=== PATIENT | female | born 1955 | race Caucasian/White ===

== ENCOUNTER 2017-06-30 16:40 | Observation (INO) | payer OTHER ==
[2017-06-30] MEDS ORDERED: MORPHINE SULFATE 4 MG/ML SYRINGE IVP STA (16:56)
[2017-06-30] MEDS ORDERED: ONDANSETRON 4 MG/2 ML VIAL IVP STA (16:56)
--- NOTE | 2017-06-30 17:19 | ED ---
General Adult HPI - General Chief complaint: Extremity Injury, Lower Stated complaint: left ankle fracture Time Seen by Provider: 06/30/17 16:45 Source: patient, EMS, RN notes reviewed Mode of arrival: EMS Limitations: no limitations - History of Present Illness Initial comments: This is a 61-year-old female presents emergency department after having been seen at [facility]. Patient states she slipped on a mat today and hurt her ankle. According to the transfer paperwork the patient has a trimalleolar fracture of her left ankle. Patient continues to be in pain and continues to be nauseous. Patient did have some lab work done but it was hemolyzed so we will be repeating her lab work. Patient denies any knee pain patient denies any hip or pelvis pain. Patient denies any other injury at this time. Patient denies hitting her head or having any neck pain. - Related Data Home Medications Medication Instructions Recorded Confirmed ALPRAZolam [Xanax] 0.25 mg PO DAILY PRN 09/03/16 06/30/17 Furosemide [Lasix] 20 mg PO DAILY 09/03/16 06/30/17 Insulin Glargine,Hum.rec.anlog 70 unit SQ HS 09/03/16 06/30/17 [Lantus Solostar] Ergocalciferol (Vitamin D2) 50,000 unit PO MO 09/17/16 06/30/17 [Vitamin D2] Insulin Aspart [Novolog Flexpen] 30 unit SQ BID 06/30/17 06/30/17 Spironolactone [Aldactone] 25 mg PO DAILY 06/30/17 06/30/17 Allergies Allergy/AdvReac Type Severity Reaction Status Date / Time morphine AdvReac Vomiting Verified 06/30/17 17:23 Review of Systems ROS Statement: Those systems with pertinent positive or pertinent negative responses have been documented in the HPI. ROS Other: All systems not noted in ROS Statement are negative. Past Medical History Past Medical History: Blood Disorder, Diabetes Mellitus, Skin Disorder History of Any Multi-Drug Resistant Organisms: None Reported Past Surgical History: Section, Cholecystectomy, Hysterectomy Additional Past Surgical History / Comment(s): SKIN GRAFTS, VEIN STRIPPING, LAPAROSCOPY Past Anesthesia/Blood Transfusion Reactions: Postoperative Nausea & Vomiting ( PONV) Past Psychological History: No Psychological Hx Reported Smoking Status: Never smoker Past Alcohol Use History: Occasional Past Drug Use History: None Reported General Exam - General Exam Comments Initial Comments: GENERAL: Patient is well-developed and well-nourished. Patient is nontoxic and well- hydrated and is in moderate distress. ENT: Neck is soft and supple. No significant lymphadenopathy is noted. Oropharynx is clear. Moist mucous membranes. Neck has full range of motion without eliciting any pain. EYES: The sclera were anicteric and conjunctiva were pink and moist. Extraocular movements were intact and pupils were equal round and reactive to light. Eyelids were unremarkable. PULMONARY: Unlabored respirations. Good breath sounds bilaterally. No audible rales rhonchi or wheezing was noted. CARDIOVASCULAR: There is a regular rate and rhythm without any murmurs gallops or rubs. ABDOMEN: Soft and nontender with normal bowel sounds. No palpable organomegaly was noted. There is no palpable pulsatile mass. SKIN: Skin is clear with no lesions or rashes and otherwise unremarkable. NEUROLOGIC: Patient is alert and oriented x3. Cranial nerves II through XII are grossly intact. Motor and sensory are also intact. Normal speech, volume and content. Symmetrical smile. MUSCULOSKELETAL: Ankle is in a splint but there is no knee or proximal leg pain. There is no hip pain. LYMPHATICS: No significant lymphadenopathy is noted PSYCHIATRIC: Normal psychiatric evaluation. Normal interpersonal interactions appears functionally intact in deals appropriately with others. No signs of depression. No signs of anxiety. Limitations: no limitations Course Vital Signs 06/30/17 06/30/17 06/30/17 16:45 18:35 20:37 Temperature 97.5 F L 97.0 F L Pulse Rate 91 95 97 Respiratory 18 18 16 Rate Blood Pressure 147/73 146/75 143/64 O2 Sat by Pulse 95 95 100 Oximetry 06/30/17 06/30/17 06/30/17 20:42 20:47 20:52 Temperature Pulse Rate 96 95 96 Respiratory 16 16 16 Rate Blood Pressure 140/62 147/67 142/62 O2 Sat by Pulse 100 100 100 Oximetry Procedures - Orthopedic Joint Reduction Joint #1 Consent Obtained: verbal consent Time Out Performed: Yes Side: left Joint Reduction Location: ankle Technique Used: traction/counter-traction Post-Reduction Neuro Exam: intact Post-Reduction Vascular Exam: intact Post Reduction X-Ray Obtained: Yes Post Reduction X-Ray Results: reduced Splint Applied: Yes Patient Tolerated Procedure: well - Procedural Sedation Procedural Sedation Start Time: 20:35 Procedural Sedation Stop Time: 21:10 Indications: fracture/dislocation reduction Preparation: pump installation and servicer applied, pulse oximeter, supplemental O2 applied IV Etomidate Dose (mgs): 20 Complications: none Patient Tolerated Procedure: well Medical Decision Making - Medical Decision Making I spoke with Dr. Licea about admitting the patient he agreed to admit the patient I first reduce the dislocation and then I ordered a computed tomography scan of the ankle. I admitted the patient wrote admitting orders - Lab Data Result diagrams: 06/30/17 17:20 06/30/17 17:20 Lab Results 06/30/17 06/30/17 Range/Units 17:20 17:20 WBC 2.6 L (3.8-10.6) k/uL RBC 4.41 (3.80-5.40) m/uL Hgb 11.7 (11.4-16.0) gm/dL Hct 37.5 (34.0-46.0) % MCV 85.2 (80.0-100.0) fL MCH 26.6 (25.0-35.0) pg MCHC 31.2 (31.0-37.0) g/dL RDW 18.9 H (11.5-15.5) % Plt Count 49 L* (150-450) k/uL Neutrophils % 64 % Lymphocytes % 25 % Monocytes % 6 % Eosinophils % 2 % Basophils % 1 % Neutrophils # 1.7 (1.3-7.7) k/uL Lymphocytes # 0.7 L (1.0-4.8) k/uL Monocytes # 0.2 (0-1.0) k/uL Eosinophils # 0.1 (0-0.7) k/uL Basophils # 0.0 (0-0.2) k/uL Manual Slide Review Performed Hypochromasia Moderate Anisocytosis Slight Sodium 138 (137-145) mmol/L Potassium 3.9 (3.5-5.1) mmol/L Chloride 104 (98-107) mmol/L Carbon Dioxide 19 L (22-30) mmol/L Anion Gap 15 mmol/L BUN 10 (7-17) mg/dL Creatinine 0.52 (0.52-1.04) mg/dL Est GFR (CKD-EPI)AfAm >90 (>60 ml/min/1.73 sqM) Est GFR (CKD-EPI)NonAf >90 (>60 ml/min/1.73 sqM) Glucose 288 H (74-99) mg/dL Calcium 8.9 (8.4-10.2) mg/dL Total Bilirubin 1.9 H (0.2-1.3) mg/dL AST 50 H (14-36) U/L ALT 40 (9-52) U/L Alkaline Phosphatase 99 (38-126) U/L Total Protein 6.3 (6.3-8.2) g/dL Albumin 3.4 L (3.5-5.0) g/dL Disposition Clinical Impression: Closed trimalleolar fracture, Ankle dislocation Disposition: ADMITTED IP TO THIS HOSP Referrals: Landen Cm MD [Primary Care Provider] - 1-2 days Time of Disposition: 20:57
[2017-06-30] MEDS ORDERED: METOCLOPRAMIDE 5 MG/ML 2 ML VIAL IVP STA ×2 (17:23→18:22)
[2017-06-30 17:31] LABS: Anisocytosis Slight; Basophils % (A) 1 %; Eosinophils # (A) 0.1 k/uL (0-0.7); Eosinophils % (A) 2 %; HCT 37.5 % (34.0-46.0); HGB 11.7 gm/dL (11.4-16.0); Hypochromasia Moderate; Lymphocytes # (A) 0.7 k/uL (1.0-4.8); Lymphocytes % (A) 25 %; MCH 26.6 pg (25.0-35.0); MCHC 31.2 g/dL (31.0-37.0); MCV 85.2 fL (80.0-100.0); Mean Platelet Volume 9.4; Monocytes # (A) 0.2 k/uL (0-1.0); Monocytes % (A) 6 %; Neutrophils # (A) 1.7 k/uL (1.3-7.7); Neutrophils % (A) 64 %; RBC 4.41 m/uL (3.80-5.40); RDW 18.9 % (11.5-15.5); WBC 2.6 k/uL (3.8-10.6)
[2017-06-30 17:46] LABS: ALT 40 U/L (9-52); AST 50 U/L (14-36); Albumin 3.4 g/dL (3.5-5.0); Alkaline Phosphatase 99 U/L (38-126); Anion Gap 15 mmol/L; Blood Urea Nitrogen 10 mg/dL (7-17); Calcium 8.9 mg/dL (8.4-10.2); Carbon Dioxide 19 mmol/L (22-30); Chloride 104 mmol/L (98-107); Glucose 288 mg/dL (74-99); Potassium 3.9 mmol/L (3.5-5.1); Sodium 138 mmol/L (137-145); Total Bilirubin 1.9 mg/dL (0.2-1.3); Total Protein 6.3 g/dL (6.3-8.2)
[2017-06-30 18:02] LABS: Platelet Count 49 k/uL (150-450)
--- NOTE | 2017-06-30 19:01 | XR ---
EXAMINATION TYPE: XR ankle limited LT DATE OF EXAM: 06/30/2017 COMPARISON: Today HISTORY: Fall. Pain. TECHNIQUE: 2 views FINDINGS: There is posterior dislocation of the talus. There is a large chip fracture of the posterio r malleolus. There is also transverse fracture of the medial malleolus. There is oblique fracture of the distal fibula. IMPRESSION: There is posterior trimalleolar fracture dislocation of the ankle without significant maxim nge in fragment position compared to exam earlier today at 2:00 PM.
[2017-06-30] MEDS ORDERED: PROMETHAZINE INJ 25 MG/ML 1 ML VIAL IM STA (19:52)
[2017-06-30] MEDS ORDERED: LORazepam 2 MG/ML INJ IV STA (20:28)
[2017-06-30] MEDS: ETOMIDATE 2 MG/ML 10 ML VIAL IVP STA ×3 (20:39→20:44)
[2017-06-30] MEDS ORDERED: SODIUM CHLORIDE 0.9% 1,000 ML IV ONE (20:58)
[2017-06-30] MEDS ORDERED: ONDANSETRON 4 MG/2 ML VIAL IVP PRN (20:59)
--- NOTE | 2017-06-30 21:18 | XR ---
EXAMINATION TYPE: XR ankle limited LT DATE OF EXAM: 06/30/2017 COMPARISON: Today HISTORY: Post reduction TECHNIQUE: 2 views FINDINGS: 2 views were obtained through the posterior cast that show anatomic reduction of the ankle joint. There is trimalleolar fracture of the ankle with fragments displaced up to 1 cm. Ankle mortise is anatomic. IMPRESSION: Satisfactory reduction. Trimalleolar fracture of the ankle joint. Plantar calcaneal spur noted.
--- NOTE | 2017-06-30 21:51 | CT ---
History ankle fracture. Pain. Comparison none. TECHNIQUE: Multiple axial sections were obtained from the mid tibia to the bottom of the foot without contrast. FINDINGS: There is a comminuted 2 x 1 cm chip fracture of the posterior malleolus. There is slight impaction of 5 mm. There is an oblique nondisplaced fracture of the distal fibula. There is nondisplaced transver se fracture of the medial malleolus. Ankle mortise is anatomic. There is a plantar calcaneal spur. Th e talus appears intact. Calcaneus is intact. There is comminution of the medial malleolus fragment. CONCLUSION: Comminuted trimalleolar fracture of the left ankle. No significant displacement.
[2017-06-30] MEDS ORDERED: MELATONIN 3 MG TABLET PO PRN (22:07)
[2017-06-30] MEDS ORDERED: ACETAMINOPHEN TAB 325 MG TAB PO PRN (22:09)
[2017-06-30] MEDS ORDERED: ACETAMINOPHEN IV (For NPO) 1,000 MG in EMPTY BAG 1 BAG IVPB PRN (22:09)
[2017-06-30] MEDS ORDERED: INSULIN DETEMIR 100 UNIT/ML 10 ML VIAL SQ ONE (22:30)
[2017-06-30] MEDS: MORPHINE SULFATE 4 MG/ML SYRINGE IVP PRN (22:43)
[2017-06-30] MEDS: KETOROLAC 30 MG/ML 1 ML VIAL IVP SCH (23:16)
[2017-07-01] MEDS: KETOROLAC 30 MG/ML 1 ML VIAL IVP SCH ×2 (04:15→11:48)
[2017-07-01 06:59] LABS: Anisocytosis Slight; Basophils % (A) 0 %; Eosinophils % (A) 1 %; HCT 32.6 % (34.0-46.0); Hypochromasia Marked; Lymphocytes # (A) 0.9 k/uL (1.0-4.8); Lymphocytes % (A) 33 %; MCH 26.3 pg (25.0-35.0); MCHC 30.6 g/dL (31.0-37.0); MCV 85.7 fL (80.0-100.0); Mean Platelet Volume 9.1; Monocytes # (A) 0.2 k/uL (0-1.0); Monocytes % (A) 8 %; Neutrophils # (A) 1.5 k/uL (1.3-7.7); Neutrophils % (A) 56 %; WBC 2.8 k/uL (3.8-10.6)
[2017-07-01 07:16] LABS: ALT 35 U/L (9-52); AST 37 U/L (14-36); Albumin 2.7 g/dL (3.5-5.0); Alkaline Phosphatase 67 U/L (38-126); Anion Gap 8 mmol/L; Blood Urea Nitrogen 14 mg/dL (7-17); Carbon Dioxide 22 mmol/L (22-30); Chloride 109 mmol/L (98-107); Glucose 238 mg/dL (74-99); Potassium 4.2 mmol/L (3.5-5.1); Sodium 139 mmol/L (137-145); Total Bilirubin 1.6 mg/dL (0.2-1.3); Total Protein 5.4 g/dL (6.3-8.2)
[2017-07-01 07:17] LABS: Glucose,Whole Blood 222 mg/dL (75-99)
[2017-07-01 07:20] LABS: Platelet Count 44 k/uL (150-450)
--- NOTE | 2017-07-01 07:25 | XR ---
EXAMINATION TYPE: XR chest 2V DATE OF EXAM: 07/01/2017 COMPARISON: NONE INDICATION: Preop ankle surgery TECHNIQUE: Frontal and lateral views of the chest are obtained. FINDINGS: The heart size is normal. The pulmonary vasculature is normal. The lungs are clear. IMPRESSION: 1. No acute pulmonary process.
[2017-07-01] MEDS: MORPHINE SULFATE 4 MG/ML SYRINGE IVP PRN (08:37)
[2017-07-01] MEDS: INSULIN ASPART 100 UNIT/ML 1 ML 10 ML VIAL SQ SCH ×2 (08:44→13:10)
--- NOTE | 2017-07-01 09:24 | P.HPOR ---
History of Present Illness H&P Date: 07/01/17 Chief Complaint: Left ankle fracture This is a 61-year-old female who fell in her home yesterday sustaining injury to her left ankle. She was initially taken to [facility] emergency department then was transferred to [facility] for orthopedic care. She was found to have a trimalleolar fracture dislocation. The ankle was reduced in the emergency department here and she was placed in a splint. CT was obtained of the ankle which revealed trimalleolar fracture in satisfactory reduction. There is also a lateral tibial fracture as well as well. Past Medical History Past Medical History: Blood Disorder, Diabetes Mellitus, Skin Disorder Additional Past Medical History / Comment(s): ITP, psoriasis History of Any Multi-Drug Resistant Organisms: None Reported Past Surgical History: Section, Cholecystectomy, Hysterectomy Additional Past Surgical History / Comment(s): SKIN GRAFTS, VEIN STRIPPING, LAPAROSCOPY Past Anesthesia/Blood Transfusion Reactions: Postoperative Nausea & Vomiting ( PONV) Past Psychological History: Anxiety Smoking Status: Never smoker Past Alcohol Use History: Daily Additional Past Alcohol Use History / Comment(s): states drinks one to a couple of drinks daily Past Drug Use History: None Reported Medications and Allergies Home Medications Medication Instructions Recorded Confirmed Type ALPRAZolam [Xanax] 0.25 mg PO DAILY PRN 09/03/16 06/30/17 History Furosemide [Lasix] 20 mg PO DAILY 09/03/16 06/30/17 History Insulin Glargine,Hum.rec.anlog 70 unit SQ HS 09/03/16 06/30/17 History [Lantus Solostar] Ergocalciferol (Vitamin D2) 50,000 unit PO MO 09/17/16 06/30/17 History [Vitamin D2] Insulin Aspart [Novolog Flexpen] 30 unit SQ BID 06/30/17 06/30/17 History Spironolactone [Aldactone] 25 mg PO DAILY 06/30/17 06/30/17 History Allergies Allergy/AdvReac Type Severity Reaction Status Date / Time morphine AdvReac Vomiting Verified 06/30/17 17:23 Physical Examination Her splint is removed. Exam of the left ankle reveals moderate swelling with some ecchymosis. There are no open wounds noted. There are patches of psoriasis throughout her lower extremities he has a +1/4 pedal pulse. She is able to wiggle her toes without difficulty or pain. Neurovascular status lower extremity is intact. Results X-rays and computed tomography scan of the left ankle reveal a trimalleolar fracture which has been reduced. There is also a lateral tibial fracture. - Labs Labs: Abnormal Lab Results - Last 24 Hours (Table) 06/30/17 06/30/17 07/01/17 Range/Units 17:20 17:20 06:21 WBC 2.6 L 2.8 L (3.8-10.6) k/uL Hgb 10.0 L D (11.4-16.0) gm/dL Hct 32.6 L (34.0-46.0) % MCHC 30.6 L (31.0-37.0) g/dL RDW 18.9 H 19.0 H (11.5-15.5) % Plt Count 49 L* 44 L* (150-450) k/uL Lymphocytes # 0.7 L 0.9 L (1.0-4.8) k/uL Chloride (98-107) mmol/L Carbon Dioxide 19 L (22-30) mmol/L Glucose 288 H (74-99) mg/dL POC Glucose (mg/dL) (75-99) mg/dL Calcium (8.4-10.2) mg/dL Total Bilirubin 1.9 H (0.2-1.3) mg/dL AST 50 H (14-36) U/L Total Protein (6.3-8.2) g/dL Albumin 3.4 L (3.5-5.0) g/dL 07/01/17 07/01/17 Range/Units 06:21 07:14 WBC (3.8-10.6) k/uL Hgb (11.4-16.0) gm/dL Hct (34.0-46.0) % MCHC (31.0-37.0) g/dL RDW (11.5-15.5) % Plt Count (150-450) k/uL Lymphocytes # (1.0-4.8) k/uL Chloride 109 H (98-107) mmol/L Carbon Dioxide (22-30) mmol/L Glucose 238 H (74-99) mg/dL POC Glucose (mg/dL) 222 H (75-99) mg/dL Calcium 8.0 L (8.4-10.2) mg/dL Total Bilirubin 1.6 H (0.2-1.3) mg/dL AST 37 H (14-36) U/L Total Protein 5.4 L (6.3-8.2) g/dL Albumin 2.7 L (3.5-5.0) g/dL H & H 06/30/17 07/01/17 Range/Units 17:20 06:21 Hgb 11.7 10.0 L D (11.4-16.0) gm/dL Hct 37.5 32.6 L (34.0-46.0) % Result Diagrams: 07/01/17 06:21 07/01/17 06:21 Assessment and Plan (1) Closed trimalleolar fracture Current Visit: Yes Status: Acute Code(s): S82.853A - DISPLACED TRIMALLEOLAR FRACTURE OF UNSP LOWER LEG, INIT SNOMED Code(s): 9910012 Plan: The clinical and radiographic findings are discussed the patient. She is placed in a well-padded splint today. Medical has been consulted for presurgical clearance. The patient has history of ITP and has a platelet count of 49,000. She was due for iron transfusion today and [place]. I will defer to internal medicine as to whether they docked proceed with that and fusion today. She may be discharged to home when cleared medically and follow-up with our office early next week to schedule open reduction internal fixation of the left ankle. She is to maintain nonweightbearing to the left lower extremity.
[2017-07-01] MEDS ORDERED: IRON SUCROSE 300 MG in SODIUM CHLORIDE 0.9% 250 ML IVPB ONE (10:15)
[2017-07-01 11:26] LABS: Glucose,Whole Blood 272 mg/dL (75-99)
[2017-07-01] MEDS ORDERED: MORPHINE ORAL SOLN 10 MG/5 ML CUP PO PRN (13:59)
[2017-07-01 15:00] VITALS: BP 163/81; PULSE 88; RESP 20; TEMP 98
--- NOTE | 2017-07-01 17:36 | P.CONS ---
History of Present Illness - Reason for Consult Consult date: 07/01/17 Apical management Requesting physician: Christopher Licea - Chief Complaint Left ankle fracture - History of Present Illness This is a 62-year-old pleasant lady patient of Dr. Cm. She has underlying history of portal hypertension and cirrhosis of liver, osteoporosis, ascites hepatitis C type 2 diabetes mellitus and pancytopenia, ITP admitted to the hospital secondary to acute ankle fracture, patient resented with a two-week history of pain in the forefoot, and was seen by Dr. Cm on 06/30/2017, patient had an x-ray that shows stress fractures, patient was home and had fallen in a foam mattress, inverted her left ankle and subsequently twisted this sustaining an ankle fracture. She has a trimalleolar lower fracture dislocation, this was reduced in the emergency department, and was placed in the splint. CT obtained of the ankle revealed trimalleolar fracture in a satisfactory reduction, there is also a lateral tibial fracture. Review of laboratories showed platelet count off 49,000, patient had no signs off with some bleeding or recent GI losses, this is a chronic nature for her, would discuss this with Dr. Barrientos oncology who knows her very well, has been following Dr. cruz for the past 6 years, she was scheduled to have an iron infusion which was given today, however in view off the low platelets, patient would require 5 units of platelet transfusion if platelet count is under 50,000 on the day of surgery when she comes back in 1 week. As per recommendations from oncology Dr. Finley, she could receive antiplatelets with aspirin 81 mg twice a day mg if platelet count is between 30-50, , DT prophylaxis in the meantime would be a SHAMEKA hose on the right as the patient cannot put the SHAMEKA hose on the left side. She was screened 2 times in the past for venous Doppler which was negative, her last Doppler imaging was over 5 months ago and complaints in the left leg Review of Systems Constitutional: Reports as per HPI, Denies anorexia, Denies chills, Denies chronic headaches, Denies chronic pain, Denies daytime sleepiness, Denies fatigue, Denies fever, Denies lethargy, Denies malaise, Denies night sweats, Denies poor appetite, Denies sweats, Denies weakness, Denies weight gain, Denies weight loss Ears, nose, mouth and throat: Reports as per HPI, Denies ant. neck pain, Denies bleeding gums, Denies dental pain, Denies dysphagia, Denies epistaxis, Denies headache, Denies hoarseness, Denies mouth pain, Denies nasal congestion, Denies nasal discharge, Denies neck fullness/pressure, Denies neck lump, Denies nose pain, Denies odynophagia, Denies post-nasal drip, Denies sinus pain, Denies sinus pressure, Denies swelling in mouth, Denies swelling in throat, Denies sore throat, Denies vertigo, Denies voice changes Cardiovascular: Reports as per HPI, Denies chest pain, Denies claudication, Denies decreased exercise tolerance, Denies dyspnea on exertion, Denies edema, Denies high blood pressure, Denies irregular heart beat, Denies leg edema, Denies lightheadedness, Denies orthopnea, Denies palpitations, Denies paroxysmal nocturnal dyspnea, Denies phlebitis, Denies rapid heart beat, Denies shortness of breath, Denies syncope Respiratory: Reports as per HPI, Denies congestion, Denies cough, Denies cough with sputum, Denies dyspnea, Denies excessive sputum, Denies hemoptysis, Denies home oxygen, Denies pain, Denies pain on inspiration, Denies pleurisy, Denies respiratory infections, Denies sleep apnea, Denies snoring, Denies wheezing Gastrointestinal: Reports as per HPI, Denies abdominal pain, Denies belching, Denies bloating, Denies BRBPR, Denies change in bowel habits, Denies coffee ground emesis, Denies constipation, Denies diarrhea, Denies dyspepsia, Denies early satiety, Denies excessive gas, Denies heartburn, Denies hematemesis, Denies hematochezia, Denies indigestion, Denies jaundice, Denies lactose intolerance, Denies loss of appetite, Denies melena, Denies nausea, Denies vomiting Genitourinary: Reports as per HPI Menstruation: Reports as per HPI Musculoskeletal: Reports as per HPI Integumentary: Reports as per HPI, Reports unusual bruising Neurological: Reports as per HPI, Denies aphasia, Denies ataxia, Denies balance difficulties, Denies burning pain, Denies change in mentation, Denies change in smell/taste, Denies change in speech, Denies confusion, Denies convulsions, Denies double vision, Denies gait dysfunction, Denies head injury, Denies headaches, Denies hearing difficulties, Denies lack of coordination, Denies loss of vision, Denies memory loss, Denies migraines, Denies motor disturbance, Denies numbness, Denies paralysis, Denies paresthesias, Denies seizures, Denies sensory deficit, Denies spasticity, Denies syncope, Denies tic, Denies tingling , Denies transient paralysis, Denies tremors, Denies vertigo, Denies weakness, Denies visual changes Psychiatric: Reports as per HPI Endocrine: Reports as per HPI, Denies cold intolerance, Denies deepening of the voice, Denies excessive sweating, Denies excessive thirst, Denies fatigue, Denies flushing, Denies heat intolerance, Denies high blood sugars, Denies increase in ring/shoe/hat size, Denies low blood sugars, Denies nocturia, Denies palpitations, Denies polydipsia, Denies polyphagia, Denies polyuria, Denies proptosis, Denies recent glucocorticoid use, Denies thyroid mass, Denies weight change Hematologic/Lymphatic: Reports as per HPI, Reports easy bleeding, Denies easy bruising, Denies lymphadenopathy, Denies lymphedema, Denies thrombophilia Allergic/Immunologic: Reports as per HPI, Denies allergic rhinitis, Denies anaphylaxis, Denies angioedema, Denies gluten intolerance, Denies persistent infections, Denies seasonal allergies, Denies urticaria, Denies wheezing Past Medical History Past Medical History: Blood Disorder, Diabetes Mellitus, Skin Disorder Additional Past Medical History / Comment(s): ITP, psoriasis History of Any Multi-Drug Resistant Organisms: None Reported Past Surgical History: Section, Cholecystectomy, Hysterectomy Additional Past Surgical History / Comment(s): SKIN GRAFTS, VEIN STRIPPING, LAPAROSCOPY Past Anesthesia/Blood Transfusion Reactions: Postoperative Nausea & Vomiting ( PONV) Past Psychological History: Anxiety Smoking Status: Never smoker Past Alcohol Use History: Daily Additional Past Alcohol Use History / Comment(s): states drinks one to a couple of drinks daily Past Drug Use History: None Reported Additional History: Mother is alive has hypertension COPD, age 85, father secondary to kidney cancer, one brother from a house fire, no sisters, one daughter healthy no signs Medications and Allergies Home Medications Medication Instructions Recorded Confirmed Type ALPRAZolam [Xanax] 0.25 mg PO DAILY PRN 09/03/16 06/30/17 History Furosemide [Lasix] 20 mg PO DAILY 09/03/16 06/30/17 History Insulin Glargine,Hum.rec.anlog 70 unit SQ HS 09/03/16 06/30/17 History [Lantus Solostar] Ergocalciferol (Vitamin D2) 50,000 unit PO MO 09/17/16 06/30/17 History [Vitamin D2] Insulin Aspart [Novolog Flexpen] 30 unit SQ BID 06/30/17 06/30/17 History Spironolactone [Aldactone] 25 mg PO DAILY 06/30/17 06/30/17 History traMADol HCL [Ultram] 50 mg PO Q6HR PRN #90 tab 07/01/17 Rx Allergies Allergy/AdvReac Type Severity Reaction Status Date / Time morphine AdvReac Vomiting Verified 06/30/17 17:23 Physical Exam Vitals: Vital Signs Temp Pulse Pulse Resp BP BP Pulse Ox 07/01/17 14:59 98.0 F 88 20 163/81 98 07/01/17 07:00 97.8 F 76 14 131/64 97 07/01/17 01:10 98.3 F 91 16 119/70 92 L 06/30/17 21:45 98.2 F 94 17 115/62 93 L 06/30/17 21:02 101 H 16 149/66 98 06/30/17 20:57 98 16 149/67 96 06/30/17 20:52 96 16 142/62 100 06/30/17 20:47 95 16 147/67 100 06/30/17 20:42 96 16 140/62 100 06/30/17 20:37 97 16 143/64 100 06/30/17 18:35 97.0 F L 95 18 146/75 95 Intake and Output 07/01/17 07/01/17 07/01/17 06:59 14:59 22:59 Intake Total 237 Balance 237 Intake: Oral 237 Other: Voiding Method Bedside Commode # Voids 1 2 - Constitutional General appearance: average body habitus, cooperative, no acute distress - EENT Eyes: anicteric sclerae, EOMI, PERRLA, dentition normal ENT: NA/AT, normal oropharynx - Neck Neck: no lymphadenopathy, normal ROM, no other, no rigidity, no stridor, no thyromegaly - Respiratory Respiratory: bilateral: CTA, negative: diminished, dullness, rales, wheezing, prolonged inspiration - Cardiovascular Rhythm: regular Heart sounds: normal: S1, S2 Abnormal Heart Sounds: no systolic murmur, no diastolic murmur, no rub, no S3 Gallop, no S4 Gallop, no click, no other - Gastrointestinal General gastrointestinal: normal bowel sounds, soft - Integumentary Integumentary: normal, normal turgor - Neurologic Neurologic: CNII-XII intact - Musculoskeletal Musculoskeletal: gait normal, strength equal bilaterally - Psychiatric Psychiatric: A&O x's 3, appropriate affect, intact judgment & insight Results CBC & Chem 7: 07/01/17 06:21 07/01/17 06:21 Labs: Abnormal Lab Results - Last 24 Hours (Table) 06/30/17 06/30/17 07/01/17 Range/Units 17:20 17:20 06:21 WBC 2.6 L (3.8-10.6) k/uL Hgb (11.4-16.0) gm/dL Hct (34.0-46.0) % MCHC (31.0-37.0) g/dL RDW 18.9 H (11.5-15.5) % Plt Count 49 L* (150-450) k/uL Lymphocytes # 0.7 L (1.0-4.8) k/uL Chloride (98-107) mmol/L Carbon Dioxide 19 L (22-30) mmol/L Glucose 288 H (74-99) mg/dL POC Glucose (mg/dL) (75-99) mg/dL Hemoglobin A1c 8.0 H (4.0-6.0) % Calcium (8.4-10.2) mg/dL Total Bilirubin 1.9 H (0.2-1.3) mg/dL AST 50 H (14-36) U/L Total Protein (6.3-8.2) g/dL Albumin 3.4 L (3.5-5.0) g/dL 07/01/17 07/01/17 07/01/17 Range/Units 06:21 06:21 07:14 WBC 2.8 L (3.8-10.6) k/uL Hgb 10.0 L D (11.4-16.0) gm/dL Hct 32.6 L (34.0-46.0) % MCHC 30.6 L (31.0-37.0) g/dL RDW 19.0 H (11.5-15.5) % Plt Count 44 L* (150-450) k/uL Lymphocytes # 0.9 L (1.0-4.8) k/uL Chloride 109 H (98-107) mmol/L Carbon Dioxide (22-30) mmol/L Glucose 238 H (74-99) mg/dL POC Glucose (mg/dL) 222 H (75-99) mg/dL Hemoglobin A1c (4.0-6.0) % Calcium 8.0 L (8.4-10.2) mg/dL Total Bilirubin 1.6 H (0.2-1.3) mg/dL AST 37 H (14-36) U/L Total Protein 5.4 L (6.3-8.2) g/dL Albumin 2.7 L (3.5-5.0) g/dL 07/01/17 Range/Units 11:23 WBC (3.8-10.6) k/uL Hgb (11.4-16.0) gm/dL Hct (34.0-46.0) % MCHC (31.0-37.0) g/dL RDW (11.5-15.5) % Plt Count (150-450) k/uL Lymphocytes # (1.0-4.8) k/uL Chloride (98-107) mmol/L Carbon Dioxide (22-30) mmol/L Glucose (74-99) mg/dL POC Glucose (mg/dL) 272 H (75-99) mg/dL Hemoglobin A1c (4.0-6.0) % Calcium (8.4-10.2) mg/dL Total Bilirubin (0.2-1.3) mg/dL AST (14-36) U/L Total Protein (6.3-8.2) g/dL Albumin (3.5-5.0) g/dL Laboratory Results WBC 2.8 k/uL (3.8-10.6) L 07/01/17 06:21 RBC 3.80 m/uL (3.80-5.40) 07/01/17 06:21 Hgb 10.0 gm/dL (11.4-16.0) L D 07/01/17 06:21 Hct 32.6 % (34.0-46.0) L 07/01/17 06:21 MCV 85.7 fL (80.0-100.0) 07/01/17 06:21 MCH 26.3 pg (25.0-35.0) 07/01/17 06:21 MCHC 30.6 g/dL (31.0-37.0) L 07/01/17 06:21 RDW 19.0 % (11.5-15.5) H 07/01/17 06:21 Plt Count 44 k/uL (150-450) L* 07/01/17 06:21 Neutrophils % 56 % 07/01/17 06:21 Lymphocytes % 33 % 07/01/17 06:21 Monocytes % 8 % 07/01/17 06:21 Eosinophils % 1 % 07/01/17 06:21 Basophils % 0 % 07/01/17 06:21 Neutrophils # 1.5 k/uL (1.3-7.7) 07/01/17 06:21 Lymphocytes # 0.9 k/uL (1.0-4.8) L 07/01/17 06:21 Monocytes # 0.2 k/uL (0-1.0) 07/01/17 06:21 Eosinophils # 0.0 k/uL (0-0.7) 07/01/17 06:21 Basophils # 0.0 k/uL (0-0.2) 07/01/17 06:21 Manual Slide Review Performed 06/30/17 17:20 Hypochromasia Marked 07/01/17 06:21 Anisocytosis Slight 07/01/17 06:21 Sodium 139 mmol/L (137-145) 07/01/17 06:21 Potassium 4.2 mmol/L (3.5-5.1) 07/01/17 06:21 Chloride 109 mmol/L (98-107) H 07/01/17 06:21 Carbon Dioxide 22 mmol/L (22-30) 07/01/17 06:21 Anion Gap 8 mmol/L 07/01/17 06:21 BUN 14 mg/dL (7-17) 07/01/17 06:21 Creatinine 0.65 mg/dL (0.52-1.04) 07/01/17 06:21 Est GFR (CKD-EPI)AfAm >90 (>60 ml/min/1.73 sqM) 07/01/17 06:21 Est GFR (CKD-EPI)NonAf >90 (>60 ml/min/1.73 sqM) 07/01/17 06:21 Glucose 238 mg/dL (74-99) H 07/01/17 06:21 POC Glucose (mg/dL) 272 mg/dL (75-99) H 07/01/17 11:23 POC Glu Sugar Refiner ID Mirtha Mckinney 07/01/17 11:[address] Glu mg/dL 183 07/01/17 06:21 Hemoglobin A1c 8.0 % (4.0-6.0) H 07/01/17 06:21 Calcium 8.0 mg/dL (8.4-10.2) L 07/01/17 06:21 Total Bilirubin 1.6 mg/dL (0.2-1.3) H 07/01/17 06:21 AST 37 U/L (14-36) H 07/01/17 06:21 ALT 35 U/L (9-52) 07/01/17 06:21 Alkaline Phosphatase 67 U/L (38-126) 07/01/17 06:21 Total Protein 5.4 g/dL (6.3-8.2) L 07/01/17 06:21 Albumin 2.7 g/dL (3.5-5.0) L 07/01/17 06:21 Assessment and Plan Plan: 1. Left ankle trimalleolar fracture and tibial fracture, requiring ORIF which is going to be performed in one week, secondary to swelling noted today, patient was having no bleeding issues however lately it count is 49,000 today, and we've discussed this with Dr. Finley, DVT prophylaxis would be SHAMEKA hose until the day of surgery, and after we would offer aspirin 81 mg twice a day if platelet count is between 30-50, if above 50,000, routine anticoagulation can be done with other medications. 2. Pancytopenia with chronic thrombocytopenia, no evidence of GI losses at this time, treatment as above,Prednisone use currently at 10 mg, unknown whether this long-term or not this would be clarified infusion to be given at the day of surgery 5 units single donor 3. Known history of hepatitis C, unknown activity however patient says she is cured by the GI specialist 4. History of psoriasis no active problems 6. History of liver cirrhosis and portal hypertension, stable 7 Diabetes mellitus type 2 not on any Apidra and Lantus at 70 units daily Apidra 30 units twice a day breakfast and dinner 8. Osteoporosis and vitamin D deficiency, on 50,000 units by 2 mean D2 every [address] Huggins in allowing us to participate in the care of your patient. We'll going to follow him with you during this current hospital stay, recommendations made as above along with oncology consultation over the phone
== END 2017-07-01 15:51 | disposition home or self-care (01) ==
LOC: EC 16:40 → INTOOBSV 20:58 → MERGE 20:58 → 3SUR 20:58 → UNDODISIN 07-01 15:51
PROVIDERS: ADMIT Orthopaedic Surgery; ATTEND Orthopaedic Surgery
DX: S82.852A Displaced trimalleolar fracture of left lower leg, initial encounter for closed fracture (principal); D69.3 Immune thrombocytopenic purpura; D61.818 Other pancytopenia; K76.6 Portal hypertension; M81.0 Age-related osteoporosis without current pathological fracture; K74.60 Unspecified cirrhosis of liver; B19.20 Unspecified viral hepatitis C without hepatic coma; L40.9 Psoriasis, unspecified; E11.9 Type 2 diabetes mellitus without complications; F41.9 Anxiety disorder, unspecified; E55.9 Vitamin D deficiency, unspecified; W01.0XXA Fall on same level from slipping, tripping and stumbling without subsequent striking against object, initial encounter; Z79.4 Long term (current) use of insulin; Z79.899 Other long term (current) drug therapy; Z90.710 Acquired absence of both cervix and uterus; Z90.49 Acquired absence of other specified parts of digestive tract; Z88.5 Allergy status to narcotic agent; Y92.009 Unspecified place in unspecified non-institutional (private) residence as the place of occurrence of the external cause
CPT/HCPCS: 96376 ×3; 96365; 96366; 96375 ×2; 96372; 99285; 36415; 27840; 99152; 99153; 93005; 97161; 80053 ×2; 85025 ×2; 83036; 73600; 71046; 73700; G0378 ×2; J2060; J2270 ×2; J2550; J2765; J2405 ×2; J1885 ×2; J1756; 96374

== ENCOUNTER → 2017-07-13 | Outpatient (CLI) | payer OTHER ==
[2017-07-13 13:17] LABS: Anisocytosis Moderate; Basophils % (A) 0 %; Eosinophils # (A) 0.1 k/uL (0-0.7); Eosinophils % (A) 3 %; HCT 41.2 % (34.0-46.0); HGB 11.8 gm/dL (11.4-16.0); Hypochromasia Marked; Lymphocytes # (A) 0.8 k/uL (1.0-4.8); Lymphocytes % (A) 30 %; MCH 25.7 pg (25.0-35.0); MCHC 28.6 g/dL (31.0-37.0); Mean Platelet Volume 9.7; Monocytes # (A) 0.3 k/uL (0-1.0); Monocytes % (A) 10 %; Neutrophils # (A) 1.5 k/uL (1.3-7.7); Neutrophils % (A) 53 %; RBC 4.58 m/uL (3.80-5.40); RDW 20.1 % (11.5-15.5); WBC 2.8 k/uL (3.8-10.6)
[2017-07-13 13:35] LABS: INR 1.6 (<1.2); Partial Thromboplastin Time 24.9 sec (22.0-30.0); Prothrombin Time 14.8 sec (9.0-12.0)
[2017-07-13 13:47] LABS: Platelet Count 46 k/uL (150-450)
== END | disposition home or self-care (01) ==
LOC: LABPAT 12:43
PROVIDERS: ATTEND Anesthesiology
DX: Z01.812 Encounter for preprocedural laboratory examination (principal); D69.3 Immune thrombocytopenic purpura
CPT/HCPCS: 36415; 85025; 85610; 85730

== ENCOUNTER 2017-07-14 10:17 | Day surgery (SDC) | payer OTHER ==
[2017-07-12 12:33] VITALS: BMI 33.5
[~2017-07-14 10:17] MED LIST: ACETAMINOPHEN TAB 500 MG TAB PO ONE; DEXAMETHASONE SOD PHOSPHATE 10 MG/ML 1 ML VIAL IV ONE; LACTATED RINGERS 1,000 ML IV SCH; MELOXICAM 7.5 MG TAB PO ONE; ONDANSETRON 4 MG/2 ML VIAL IVP ONE; ceFAZolin IN SWFI 2 GM/20 ML SYRINGE IVP ONE
[2017-07-14] MEDS ORDERED: LACTATED RINGERS 1,000 ML IV ONE (11:22)
[2017-07-14] MEDS ORDERED: SCOPOLAMINE 1.5MG/72HR PATCH TRANSDERM ONE (11:27)
[2017-07-14] MEDS ORDERED: INSULIN ASPART 100 UNIT/ML 1 ML 10 ML VIAL SQ ONE ×2 (11:32→15:27)
[2017-07-14 11:40] LABS: Glucose,Whole Blood 258 mg/dL (75-99)
[2017-07-14] MEDS ORDERED: NEOSTIGMINE 1 MG/ML 10 ML VIAL ONE (12:12)
[2017-07-14] MEDS ORDERED: MIDAZOLAM 2 MG/2 ML VIAL ONE (12:12)
[2017-07-14] MEDS ORDERED: GLYCOPYRROLATE 0.2 MG/ML 2 ML VIAL ONE (12:12)
[2017-07-14] MEDS ORDERED: fentaNYL (PF) 50 MCG/ML 2 ML AMP ONE (12:12)
[2017-07-14] MEDS ORDERED: ROCURONIUM BROMIDE 10 MG/ML 10 ML VIAL IV ONE (12:12)
[2017-07-14] MEDS ORDERED: PROPOFOL 10 MG/ML 20 ML VIAL IV ONE (12:12)
[2017-07-14] MEDS ORDERED: LIDOCAINE 1% INJ 10MG/ML (20 ML MDV) ONE (12:12)
[2017-07-14] MEDS ORDERED: SUCCINYLCHOLINE CHLORIDE 100 MG/5 ML SYR IV ONE (12:12)
[2017-07-14] MEDS ORDERED: BUPIVACAINE (PF) 0.5% 30 ML VIAL SQ ONE (13:00)
[2017-07-14 14:22] VITALS: TEMP 98.5
--- NOTE | 2017-07-14 14:39 | P.OP ---
Date of Procedure: 07/14/17 Procedure(s) Performed: PREOPERATIVE DIAGNOSES: 1. Left ankle lateral and medial malleolus fracture, Forman B bimalleolar fracture POSTOPERATIVE DIAGNOSES: 1. Left ankle lateral and medial malleolus fracture; 2. Poor bone quality/osteopenia/osteoporosis PROCEDURES PERFORMED: 1. Left ankle lateral malleolus fracture open reduction and internal fixation. 2. Left ankle medial malleolus fracture open reduction and internal fixation ANESTHESIA: General COMPLICATIONS: None ESTIMATED BLOOD LOSS: Less than 10 mL. TOURNIQUET: approximately 70 minutes DISPOSITION: To post-anesthesia care unit INDICATIONS: The patient is a 61-year-old female with multiple medical problems including hepatitis C (treated with Harvoni), insulin-dependent diabetes, and psoriasis for which she takes immunosuppressants, who presents to the operating room today for fixation of ankle fracture. The fracture is a bimalleolar fracture, with a fracture of the lateral malleolus that is high enough to produce talar instability, as well as a displaced medial malleolus fracture. Initially, the ankle was quite subluxed and was reduced in the emergency room. I have recommended surgical fixation of the ankle fracture. I have discussed these issues with the patient, who wishes to proceed with the operative plan. I have explained the details of this surgery thoroughly and also explained the potential risks and complications. These are inclusive of, but not limited to: bleeding, infection, scarring, discomfort, blood vessel and nerve damage, stiffness, arthritis, persistent limp, weakness, need for further surgery, failure to relieve symptoms, persistence or worsening of problems, , and other risks. The patient is aware of these risks and agrees to proceed with surgery. The consent form has been signed. PROCEDURE: After appropriate consent was obtained, the patient was taken to the operating room and placed supine on the operating table. General anesthesia was initiated. The ankle was removed from the splint and examined for any signs of significant fracture blisters or swelling that would prevent continuation of the surgery. Skin appeared healthy and intact, swellling was moderate but not excessive. Psoriatic plaques were noted scattered around the lower leg but none of them were in close proximity to the planned incisions. The limb was prepped and draped in the usual aseptic fashion with ChloraPrep, and the patient was given IV antibiotics. The tourniquet was then inflated to 350 mmHg after careful exsanguination of the limb. Time out was called, confirming patient identity, side, procedure, and administration of antibiotics. Incision was created laterally, centered over the fracture site, for a length of approximately 4 inches. The incision was carried down through skin and into subcutaneous tissues, and blunt dissection then proceeded down to fascia. Fascia was split in line with the incision and the peroneal muscles were retracted posteriorly. The fracture site was exposed with subperiosteal dissection for as much exposure of the bone as was necessary. Fracture hematoma was evacuated and the interior of the fracture site was meticulously cleansed with irrigation and manual extraction of organizing hematoma and bone debris. The fracture was minimally comminuted and oblique in orientation. Bone quality was poor, as evidenced by softness of the bone and thinness of the cortices. Special care and time were taken to not subject the bone to excessive force in the process of reduction. The fracture was mobilized using a méndez elevator and reduction was accomplished carefully and meticulously using a bone clamp, which was also used to secure the fracture. Anatomic reduction was accomplished. An interfragmentary screw was not able to be inserted secondary to comminution at the fracture site. Next, a precontoured fibular plate from [employer] was selected for size and side. The proximal holes were filled with fully threaded 3.5 mm cortical screws. Distal holes were filled with 4 2.7 mm locking screws. No evidence of joint penetration on the mini-C-arm views was noted. Next, the medial malleolus was evaluated and treated. An incision was created for approximately 1.5 inches on the medial aspect of the ankle, and carried down through skin sharply and then bluntly using a dissecting scissor down to fascia and periosteum. The fracture fragment was able to be mobilized and secured with a [id number] reduction forceps. Subsequently, a guidepin was placed across the fracture site and several adjustments were made of this guidepin so that the position was perfect on C-arm imaging. The outer cortex was reamed, and appropriately sized 4.0 cannulated cancellus screw(s) with long threads were inserted over the guidepin until they were fully deployed. Final C -arm images were then taken, showing anatomic alignment of the mortise and medial malleolar fracture site. The fracture was noted to be in anatomic position and stress testing under C- arm imaging showed no significant migration, shift, or tilt of the talus with external rotation stress, hindfoot inversion or eversion. Screw lengths were noted to be appropriate and the incision was then irrigated thoroughly using normal saline. Tourniquet was deflated and hemostasis was obtained using electrocautery. Fascial closure was performed with 0-Vicryl suture, subcutaneous closure with 2-0 Vicryl suture. Skin was closed with yuni. Sterile dressing was applied and well padded, well molded short leg splint was applied with the ankle in neutral. Patient tolerated the procedure well and taken to recovery room in stable condition. Sponge and needle counts were correct.
--- NOTE | 2017-07-14 15:02 | XR ---
Limited left ankle HISTORY: Ankle fracture 3 intraoperative images document the procedure.
--- NOTE | 2017-07-14 15:04 | FL ---
Fluoroscopy HISTORY: fracture 14 seconds fluoroscopy time supplied to the referring clinician. 3 intraoperative C-arm images docum ent the procedure. See dictated report from orthopedic surgery.
[2017-07-14] MEDS: fentaNYL (PF) 50 MCG/ML 2 ML AMP IV PRN ×3 (15:07→15:30)
[2017-07-14 15:26] LABS: Glucose,Whole Blood 254 mg/dL (75-99)
[2017-07-14 15:32] VITALS: RESP 16
[2017-07-14 16:30] VITALS: BP 137/61; PULSE 78
== END 2017-07-14 16:45 | disposition home or self-care (01) ==
LOC: OR 10:17 → MERGE 12:00 → OR 16:45
PROVIDERS: ATTEND Orthopaedic Surgery
DX: S82.842A Displaced bimalleolar fracture of left lower leg, initial encounter for closed fracture (principal); W19.XXXA Unspecified fall, initial encounter; M85.80 Other specified disorders of bone density and structure, unspecified site; M81.0 Age-related osteoporosis without current pathological fracture; L40.9 Psoriasis, unspecified; E11.9 Type 2 diabetes mellitus without complications; Z79.4 Long term (current) use of insulin; K74.60 Unspecified cirrhosis of liver; F32.9 Major depressive disorder, single episode, unspecified; R45.0 Nervousness; Z87.891 Personal history of nicotine dependence; Z79.891 Long term (current) use of opiate analgesic; Z79.899 Other long term (current) drug therapy; Z79.1 Long term (current) use of non-steroidal anti-inflammatories (NSAID); Z88.5 Allergy status to narcotic agent
CPT/HCPCS: 93005; 36430; 86900; 86901; 86850; 73610; 27814; C1713; P9035; J2250; J1100; J2710; J2405; J2001; J3010; J0330; J2704; J0690